=== PATIENT | male | born 1990 | race Caucasian/White ===

== ENCOUNTER 2018-12-08 02:18 | Emergency (ER) | payer MEDICAID ==
[~2018-12-08] VITALS: Ht 180.3 cm; Wt 98.0 kg
[2018-12-08] MEDS ORDERED: VISCOUS LIDOCAINE 2% 15 ML UDC PO STA (02:37)
[2018-12-08] MEDS ORDERED: MAGNESIUM/ALUMINUM HYDROXIDE/SIMETHICONE 30ML UDC PO STA (02:37)
[2018-12-08] MEDS ORDERED: ONDANSETRON 4MG ODT PO ONE (02:45)
[2018-12-08 02:51] LABS: HEMATOCRIT. 47.2 % (42.0-52.0); HEMOGLOBIN. 15.9 g/dL (14.0-18.0); MEAN CORPUSCULAR HEMOGLOBIN 29.1 pg (28.0-32.0); MEAN CORPUSCULAR VOLUME 86.4 fL (80.0-94.0); MEAN PLATELET VOLUME 7.4 fl (7.4-10.4); PLATELET 261 x1000/uL (130-400); RED BLOOD CELL COUNT 5.46 mill/uL (4.7-6.1); RED CELL DISTRIBUTION WIDTH 13.4 % (11.6-14.6)
[2018-12-08 02:57] LABS: CHLORIDE 101 mEq/L (98-107)
[2018-12-08 03:27] LABS: ATYPICAL LYMPHOCYTES 1; PLATELET ESTIMATE NORMAL
[2018-12-08] MEDS ORDERED: KETOROLAC 30MG/ML VIAL IV ONE (04:15)
[2018-12-08] MEDS ORDERED: IBUPROFEN 600MG TABLET PO ONE (05:30)
[2018-12-08 05:31] VITALS: BP 139/88
== END 2018-12-08 05:38 | disposition home or self-care (01) ==
LOC: ER 03:50
DX: K80.20 Calculus of gallbladder without cholecystitis without obstruction (principal); F12.10 Cannabis abuse, uncomplicated; Z90.49 Acquired absence of other specified parts of digestive tract
CPT/HCPCS: 36415; 76700; 80053; 83690; 85025; 96374; 99284; J1885; Q0162